=== PATIENT | female | born 1960 | race African-American/Black ===

== ENCOUNTER 2016-08-10 12:27 | Emergency (ER) | payer BC ==
[~2016-08-10 12:27] MED LIST: KEFLEX PO; VICODIN PO
== END 2016-08-10 15:35 | disposition home or self-care (01) ==
LOC: CED 12:27 → CFTX 12:27
DX: S05.01XA Injury of conjunctiva and corneal abrasion without foreign body, right eye, initial encounter (principal); I10 Essential (primary) hypertension; F17.210 Nicotine dependence, cigarettes, uncomplicated; X58.XXXA Exposure to other specified factors, initial encounter
CPT/HCPCS: 99283